=== PATIENT | male | born 1970 | race Caucasian/White ===

== ENCOUNTER 2019-10-26 05:27 | Emergency (ER) | payer BC, OTHER ==
[~2019-10-26] VITALS: Ht 172.7 cm; Wt 70.3 kg
--- NOTE | 2019-10-26 05:35 | NUR ---
PATIENT CAME TO ER BED 10 C/O URINARY PAIN. PATIENT STATES THAT A FEW WEEKS AGO, HIS PMD PRESCRIBED HIM MACROBID AND IT DIDN'T WORK, THEN WAS PRESCRIBED CIPRO, WITHOUT EFFECT. PATIENT STATES THAT HE HAS SORENESS IN HIS PELVIC REGION WITH BURNING UPON URINATION. AAOX4. NO SOB. BREATHING EVENLY AND UNLABORED ON ROOM AIR.
[2019-10-26 05:37] VITALS: BP 137/79
--- NOTE | 2019-10-26 05:45 | NUR ---
URINE COLLECTED AND SENT TO LAB.
[2019-10-26 06:02] LABS: APPEARANCE,URINE SL CLOUDY (CLEAR); BILIRUBIN,URINE SMALL (NEGATIVE); BLOOD, URINE SMALL Ery/uL (NEGATIVE); COLOR,URINE YELLOW (YELLOW); KETONES,URINE NEGATIVE (NEGATIVE); LEUKOCYTE ESTERASE ,URINE TRACE (NEGATIVE); NITRITE, URINE NEGATIVE (NEGATIVE); PH,URINE 5.5 (5.0-8.0); PROTEIN,URINE 100 mg/dl (NEGATIVE); UGLUCOSE NEGATIVE (NEGATIVE); UROBILINOGEN,URINE 0.2 EU/dL (0.2)
[2019-10-26 06:10] LABS: BACTERIA,URINE Moderate /HPF (None Seen); MUCUS,URINE Moderate /LPF (None Seen); SQUAMOUS EPITHELIAL CELL,UR Few /HPF (None Seen); WBC,URINE 81-100 /HPF (0-3)
[2019-10-26] MEDS ORDERED: LIDOCAINE 1% INJ 50 ML MDV IJ ONE (06:30)
[2019-10-26] MEDS ORDERED: CEFTRIAXONE 1 G VIAL IM ONE (06:30)
[2019-10-26] MEDS ORDERED: CEFTRIAXONE 1 G VIAL ONE (06:31)
[2019-10-26] MEDS ORDERED: LIDOCAINE /MPF 1% VIAL 5 ML VIAL ONE (06:31)
--- NOTE | 2019-10-26 07:06 | NUR ---
Patient discharged to home in stable condition. Written and verbal after care instructions given. Patient verbalizes understanding of instruction.
== END 2019-10-26 07:06 | disposition home or self-care (01) ==
LOC: ER 05:33
DX: N39.0 Urinary tract infection, site not specified (principal)
CPT/HCPCS: 81001; 87086; 96372; 99283; J0696; J3490; 81000-TC